=== PATIENT | female | born 1940 | race American Indian/Alaskan Native ===

== ENCOUNTER 2022-07-09 10:41 | Inpatient (IN) | payer MEDICARE ==
[2022-07-09] MEDS ORDERED: traZODone 50 MG TAB PO SCH (22:00)
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
[2022-07-10] MEDS ORDERED: hydrOXYzine PAMOATE 25 MG CAP PO PRN (10:59)
[2022-07-10 16:07] LABS: Hematocrit 33.8 % (30.3-42.9); Hemoglobin 10.8 gm/dl (10.1-14.3); Mean Corpuscular HGB Conc 32 % (30-34); Mean Corpuscular Volume 95 fl (79-97); Platelet Count 247 K/mm3 (140-440); Red Blood Count 3.56 M/mm3 (3.65-5.03); Red Cell Distribution Width 13.4 % (13.2-15.2)
[2022-07-10 16:21] LABS: Albumin 3.9 g/dL (3.9-5); BUN/Creatinine Ratio 18; Blood Urea Nitrogen 16 mg/dL (7-17); Calcium 9.4 mg/dL (8.4-10.2); Chol/HDL Ratio 2.31 %; Hemolysis Index 4
[2022-07-10 16:27] LABS: Alanine Aminotransferase < 5 units/L (7-56)
[2022-07-10 17:20] LABS: Anisocytosis 1+; Basophils % (Manual) 0 % (0.0-1.8); Burr Cells 1+; Platelet Estimate Consistent w Auto; Poikilocytosis 1+; Total Cells Counted 100
--- NOTE | 2022-07-10 17:57 | Consultation ---
History of Present Illness - Reason for Consult Consult date: 07/10/22 Medical management - History of Present Illness Patient is a 81-year-old female past medical history of hypertension, nonin sulin-dependent type 2 diabetes mellitus, hyperlipidemia, and anxiety who presented for further stabilization after experiencing paranoia and delusions. The patient denied any hallucinations, suicidal ideation, or increased erratic behavior. On evaluation, the patient was found to be alert and oriented and hemodynamically stable. The hospitalist service was consulted for medical management of nonpsychiatric diagnoses. Past History Past Medical History: diabetes ([id number]), hypertension, hyperlipidemia, other (Anxiety) Past Surgical History: No surgical history Social history: lives with family, full code Family history: no significant family history Medications and Allergies Allergies Allergy/AdvReac Type Severity Reaction Status Date / Time No Known Allergies Allergy Verified 07/09/22 20:32 Home Medications Medication Instructions Recorded Confirmed Last Taken Type Furosemide [Lasix] 40 mg PO DAILY 07/10/22 07/10/22 Unknown History Potassium Chloride [Klor-Con M20] 20 meq PO DAILY 07/10/22 07/10/22 Unknown History Simvastatin 40 mg PO HS 07/10/22 07/10/22 Unknown History Sulfamethoxazole/Trimethoprim 1 each PO BID MDD 14 tabs X 7 Days 07/10/22 07/10/22 Unknown History [Bactrim DS TAB] carvediloL [Coreg] 3.125 mg PO BID 07/10/22 07/10/22 Unknown History lisinopriL [Lisinopril] 20 mg PO DAILY 07/10/22 07/10/22 Unknown History metFORMIN [Glucophage] 500 mg PO BID 07/10/22 07/10/22 Unknown History risperiDONE [RisperDAL] 0.5 mg PO HS 07/10/22 07/10/22 Unknown History risperiDONE [RisperDAL] 0.5 mg PO QHS 07/10/22 07/10/22 Unknown History Active Meds: Active Medications Hydroxyzine Pamoate (Hydroxyzine Pamoate 25 Mg Cap) 25 mg PO Q6H PRN PRN Reason: Anxiety Risperidone (Risperidone 0.25 Mg Tab) 0.5 mg PO HS [facility] Trazodone HCl (Trazodone 50 Mg Tab) 50 mg PO QHS PRN PRN Reason: Insomnia Review of Systems All systems: negative Exam - Constitutional Vitals: Temp Pulse Resp BP Pulse Ox 97.7 F 145 H 18 108/75 99 07/10/22 09:31 07/10/22 09:31 07/10/22 09:31 07/10/22 09:31 07/10/22 09:31 General appearance: Present: no acute distress, well-nourished - EENT Eyes: Present: PERRL, EOM intact ENT: hearing intact, clear oral mucosa, dentition normal - Neck Neck: Present: supple, normal ROM - Respiratory Respiratory effort: normal Respiratory: bilateral: CTA - Cardiovascular Rhythm: regular Heart Sounds: Present: S1 & S2 - Extremities Extremities: no ischemia, pulses intact, pulses symmetrical, No edema, normal temperature, normal color Peripheral Pulses: within normal limits - Abdominal General gastrointestinal: Present: soft, non-tender, non-distended, normal bowel sounds Female genitourinary: Present: deferred - Rectal Rectal Exam: deferred - Integumentary Integumentary: Present: clear, warm, dry - Musculoskeletal Musculoskeletal: strength equal bilaterally - Psychiatric Psychiatric: other (Increased anxiety) - Neurologic Neurologic: CNII-XII intact, moves all extremities - Allied Health Allied health notes reviewed: nursing Results - Labs CBC & Chem 7: 07/10/22 07:28 07/10/22 07:28 Labs: Abnormal lab results 07/10/22 07/10/22 07/10/22 Range/Units 07:28 07:28 07:28 RBC 3.56 L (3.65-5.03) M/mm3 Lymphocytes % (Manual) 9.0 L (13.4-35.0) % Monocytes % (Manual) 20.0 H (0.0-7.3) % Eosinophils % (Manual) 7.0 H (0.0-4.3) % Lymphocytes # (Manual) 0.5 L (1.2-5.4) K/mm3 Monocytes # (Manual) 1.0 H (0.0-0.8) K/mm3 POC Glucose (70-105) mg/dL ALT < 5 L (7-56) units/L HDL Cholesterol 72 H (40-59) mg/dL 07/10/22 Range/Units 08:03 RBC (3.65-5.03) M/mm3 Lymphocytes % (Manual) (13.4-35.0) % Monocytes % (Manual) (0.0-7.3) % Eosinophils % (Manual) (0.0-4.3) % Lymphocytes # (Manual) (1.2-5.4) K/mm3 Monocytes # (Manual) (0.0-0.8) K/mm3 POC Glucose 133 H (70-105) mg/dL ALT (7-56) units/L HDL Cholesterol (40-59) mg/dL Assessment and Plan Patient is a 81-year-old female past medical history of hypertension, noninsulin-dependent type 2 diabetes mellitus, hyperlipidemia, and anxiety who p resented for further stabilization after experiencing paranoia and delusions. The patient denied any hallucinations, suicidal ideation, or increased erratic behavior. On evaluation, the patient was found to be alert and oriented and hemodynamically stable. The hospitalist service was consulted for medical management of nonpsychiatric diagnoses. #Anxiety #Delusion disorder Management per primary team #Acute cystitis without hematuria Continue Bactrim 1 tab twice daily x5 days #Hyperlipidemia #Hypertension - home medications: Lasix 40 mg daily, simvastatin 40 mg daily, Coreg 3.125 mg twice daily, lisinopril 20 mg daily - current medications: Atorvastatin 40 mg daily, Coreg 3.125 mg twice daily, lisinopril 20 mg daily - SBP goal <160 and DBP goal <90 while inpatient - continue to monitor #Non-insulin dependent type II diabetes mellitus - hemoglobin A1c: 5.4 - home regimen: Metformin 500 mg twice daily - current regimen: Discontinuing metformin 500 mg twice daily as the patient's A1c is within normal range - blood glucose goal 140-180 while inpatient - continue to monitor #Advanced care planning -Disease education conducted, care plan discussed, diagnoses discussed, prognosis discussed, and patient acknowledges understanding with care plan -Time: +30 min Thank you for this interesting consult. Please feel free to reach out should any questions arise. We will continue to monitor.
[2022-07-10] MEDS: SULFAMETHOXAZOLE/TRIMETHOPRIM 800/160MG DS TAB PO SCH (21:50)
[2022-07-10] MEDS: risperiDONE 0.25 MG TAB PO SCH (21:50)
[2022-07-10] MEDS ORDERED: NON-FORMULARY EACH (Risperidone [Risperdal] 0.5 MG Tablet) PO SCH (22:00)
[2022-07-10] MEDS ORDERED: traZODone 50 MG TAB PO PRN (22:00)
[2022-07-10] MEDS ORDERED: metFORMIN 500 MG TAB PO SCH (22:00)
--- NOTE | 2022-07-11 07:56 | Progress Note ---
Assessment and Plan Assessment and plan: Patient is a 81-year-old female past medical history of hypertension, noninsulin-dependent type 2 diabetes mellitus, hyperlipidemia, and anxiety who presented for further stabilization after experiencing paranoia and delusions. The patient denied any hallucinations, suicidal ideation, or increased erratic behavior. On evaluation, the patient was found to be alert and oriented and hemodynamically stable. The hospitalist service was consulted for medical management of nonpsychiatric diagnoses. Past History Past Medical History: diabetes ([id number]), hypertension, hyperlipidemia, other (Anxiety) Past Surgical History: No surgical history Social history: lives with family, full code Family history: no significant family history Patient is a 81-year-old female past medical history of hypertension, noninsulin-dependent type 2 diabetes mellitus, hyperlipidemia, and anxiety who presented for further stabilization after experiencing paranoia and delusions. The patient denied any hallucinations, suicidal ideation, or increased erratic behavior. On evaluation, the patient was found to be alert and oriented and hemodynamically stable. The hospitalist service was consulted for medical management of nonpsychiatric diagnoses. #Anxiety: Continue supportive care per PSYCH TEAM #Delusion disorder Management per primary team #Acute cystitis without hematuria Continue Bactrim 1 tab twice daily x5 days #Hyperlipidemia #Hypertension - home medications: Lasix 40 mg daily, simvastatin 40 mg daily, Coreg 3.125 mg twice daily, lisinopril 20 mg daily - current medications: Atorvastatin 40 mg daily, Coreg 3.125 mg twice daily, lisinopril 20 mg daily - SBP goal <160 and DBP goal <90 while inpatient - continue to monitor #Non-insulin dependent type II diabetes mellitus - hemoglobin A1c: 5.4 - home regimen: Metformin 500 mg twice daily - current regimen: Discontinuing metformin 500 mg twice daily as the patient's A1c is within normal range - blood glucose goal 140-180 while inpatient - continue to monitor #Advanced care planning -Disease education conducted, care plan discussed, diagnoses discussed, pr ognosis discussed, and patient acknowledges understanding with care plan -Time: +30 min Thank you for this interesting consult. Please feel free to reach out should any questions arise. We will continue to monitor. History Interval history: Patient seen and examined no new complaints this morning. Hospitalist Physical - Physical exam Narrative exam: Other diarrhea have improved back from General appearance: Present: no acute distress, well-nourished - EENT Eyes: Present: PERRL, EOM intact ENT: hearing intact, clear oral mucosa, dentition normal - Neck Neck: Present: supple, normal ROM - Respiratory Respiratory effort: normal Respiratory: bilateral: CTA - Cardiovascular Rhythm: regular Heart Sounds: Present: S1 & S2 - Extremities Extremities: no ischemia, pulses intact, pulses symmetrical, No edema, normal temperature, normal color Peripheral Pulses: within normal limits - Abdominal General gastrointestinal: Present: soft, non-tender, non-distended, normal bowel sounds Female genitourinary: Present: deferred - Rectal Rectal Exam: deferred - Integumentary Integumentary: Present: clear, warm, dry - Musculoskeletal Musculoskeletal: strength equal bilaterally - Psychiatric Psychiatric: Normal mood - Neurologic Neurologic: CNII-XII intact, moves all extremities - Allied Health Allied health notes reviewed: nursing - Constitutional Vitals: Temp Pulse Resp BP Pulse Ox 98.9 F 90 18 108/75 99 07/10/22 22:00 07/10/22 22:00 07/10/22 22:00 07/10/22 22:00 07/10/22 22:00 General appearance: Present: no acute distress, well-nourished Results - Labs CBC & Chem 7: 07/10/22 07:28 07/10/22 07:28 Labs: Laboratory Last Values WBC 5.2 K/mm3 (4.5-11.0) 07/10/22 07:28 RBC 3.56 M/mm3 (3.65-5.03) L 07/10/22 07:28 Hgb 10.8 gm/dl (10.1-14.3) 07/10/22 07:28 Hct 33.8 % (30.3-42.9) 07/10/22 07:28 MCV 95 fl (79-97) 07/10/22 07:28 MCH 30 pg (28-32) 07/10/22 07:28 MCHC 32 % (30-34) 07/10/22 07:28 RDW 13.4 % (13.2-15.2) 07/10/22 07:28 Plt Count 247 K/mm3 (140-440) 07/10/22 07:28 Bartholomew % (Auto) Power Reactor Supervisor 07/10/22 07:28 Add Manual Diff Complete 07/10/22 07:28 Total Counted 100 07/10/22 07:28 Seg Neuts % (Manual) 64.0 % (40.0-70.0) 07/10/22 07:28 Band Neutrophils % 0 % 07/10/22 07:28 Lymphocytes % (Manual) 9.0 % (13.4-35.0) L 07/10/22 07:28 Reactive Lymphs % (Man) 0 % 07/10/22 07:28 Monocytes % (Manual) 20.0 % (0.0-7.3) H 07/10/22 07:28 Eosinophils % (Manual) 7.0 % (0.0-4.3) H 07/10/22 07:28 Basophils % (Manual) 0 % (0.0-1.8) 07/10/22 07:28 Metamyelocytes % 0 % 07/10/22 07:28 Myelocytes % 0 % 07/10/22 07:28 Promyelocytes % 0 % 07/10/22 07:28 Blast Cells % 0 % 07/10/22 07:28 Nucleated RBC % Not Reportable 07/10/22 07:28 Seg Neutrophils # Man 3.3 K/mm3 (1.8-7.7) 07/10/22 07:28 Band Neutrophils # 0.0 K/mm3 07/10/22 07:28 Lymphocytes # (Manual) 0.5 K/mm3 (1.2-5.4) L 07/10/22 07:28 Abs React Lymphs (Man) 0.0 K/mm3 07/10/22 07:28 Monocytes # (Manual) 1.0 K/mm3 (0.0-0.8) H 07/10/22 07:28 Eosinophils # (Manual) 0.4 K/mm3 (0.0-0.4) 07/10/22 07:28 Basophils # (Manual) 0.0 K/mm3 (0.0-0.1) 07/10/22 07:28 Metamyelocytes # 0.0 K/mm3 07/10/22 07:28 Myelocytes # 0.0 K/mm3 07/10/22 07:28 Promyelocytes # 0.0 K/mm3 07/10/22 07:28 Blast Cells # 0.0 K/mm3 07/10/22 07:28 WBC Morphology Not Reportable 07/10/22 07:28 Hypersegmented Neuts Not Reportable 07/10/22 07:28 Hyposegmented Neuts Not Reportable 07/10/22 07:28 Hypogranular Neuts Not Reportable 07/10/22 07:28 Smudge Cells Not Reportable 07/10/22 07:28 Toxic Granulation Not Reportable 07/10/22 07:28 Toxic Vacuolation Not Reportable 07/10/22 07:28 Dohle Bodies Not Reportable 07/10/22 07:28 Pelger-Huet Anomaly Not Reportable 07/10/22 07:28 Tamika Rods Not Reportable 07/10/22 07:28 Platelet Estimate Consistent w auto 07/10/22 07:28 Clumped Platelets Not Reportable 07/10/22 07:28 Plt Clumps, EDTA Not Reportable 07/10/22 07:28 Large Platelets Not Reportable 07/10/22 07:28 Giant Platelets Not Reportable 07/10/22 07:28 Platelet Satelliting Not Reportable 07/10/22 07:28 Plt Morphology Comment Not Reportable 07/10/22 07:28 RBC Morphology Not Reportable 07/10/22 07:28 Dimorphic RBCs Not Reportable 07/10/22 07:28 Polychromasia Not Reportable 07/10/22 07:28 Hypochromasia Not Reportable 07/10/22 07:28 Poikilocytosis 1+ 07/10/22 07:28 Anisocytosis 1+ 07/10/22 07:28 Microcytosis Not Reportable 07/10/22 07:28 Macrocytosis Not Reportable 07/10/22 07:28 Spherocytes Not Reportable 07/10/22 07:28 Pappenheimer Bodies Not Reportable 07/10/22 07:28 Sickle Cells Not Reportable 07/10/22 07:28 Target Cells Not Reportable 07/10/22 07:28 Tear Drop Cells Not Reportable 07/10/22 07:28 Ovalocytes Not Reportable 07/10/22 07:28 Helmet Cells Not Reportable 07/10/22 07:28 Gonzalez-Freistatt Bodies Not Reportable 07/10/22 07:28 Bruno Rings Not Reportable 07/10/22 07:28 Somers Cells 1+ 07/10/22 07:28 Bite Cells Not Reportable 07/10/22 07:28 Crenated Cell Not Reportable 07/10/22 07:28 Elliptocytes Not Reportable 07/10/22 07:28 Acanthocytes (Spur) Not Reportable 07/10/22 07:28 Rouleaux Not Reportable 07/10/22 07:28 Hemoglobin C Crystals Not Reportable 07/10/22 07:28 Schistocytes Not Reportable 07/10/22 07:28 Malaria parasites Not Reportable 07/10/22 07:28 Justin Bodies Not Reportable 07/10/22 07:28 Hem Pathologist Commnt No 07/10/22 07:28 Sodium 144 mmol/L (137-145) 07/10/22 07:28 Potassium 4.0 mmol/L (3.6-5.0) 07/10/22 07:28 Chloride 102.4 mmol/L (98-107) 07/10/22 07:28 Carbon Dioxide 29 mmol/L (22-30) 07/10/22 07:28 Anion Gap 17 mmol/L 07/10/22 07:28 BUN 16 mg/dL (7-17) 07/10/22 07:28 Creatinine 0.9 mg/dL (0.6-1.2) 07/10/22 07:28 Estimated GFR > 60 ml/min 07/10/22 07:28 BUN/Creatinine Ratio 18 % 07/10/22 07:28 Glucose 100 mg/dL (65-100) 07/10/22 07:28 POC Glucose 254 mg/dL (70-105) H 07/10/22 20:33 Hemoglobin A1c 5.4 % (4-6) 07/10/22 07:28 Calcium 9.4 mg/dL (8.4-10.2) 07/10/22 07:28 Total Bilirubin 0.80 mg/dL (0.1-1.2) 07/10/22 07:28 AST 12 units/L (5-40) 07/10/22 07:28 ALT < 5 units/L (7-56) L 07/10/22 07:28 Alkaline Phosphatase 76 units/L (35-129) 07/10/22 07:28 Total Protein 6.6 g/dL (6.3-8.2) 07/10/22 07:28 Albumin 3.9 g/dL (3.9-5) 07/10/22 07:28 Albumin/Globulin Ratio 1.4 % 07/10/22 07:28 Triglycerides 59 mg/dL (2-149) 07/10/22 07:28 Cholesterol 167 mg/dL (50-199) 07/10/22 07:28 LDL Cholesterol Direct 86 mg/dL (50-130) 07/10/22 07:28 HDL Cholesterol 72 mg/dL (40-59) H 07/10/22 07:28 Cholesterol/HDL Ratio 2.31 % 07/10/22 07:28 TSH 0.573 mlU/mL (0.270-4.200) 07/10/22 07:28 Varghese/IV: Voiding Method Toilet Active Medications - Current Medications Current Medications: Generic Name Dose Route Start Last Admin Trade Name Freq PRN Reason Stop Dose Admin Carvedilol 3.125 mg 07/11/22 10:00 Carvedilol 3.125 Mg Tab PO BID ALVINO Hydroxyzine Pamoate 25 mg 07/10/22 10:59 Hydroxyzine Pamoate 25 Mg Cap PO Q6H PRN Anxiety Lisinopril 20 mg 07/11/22 10:00 Lisinopril 20 Mg Tab PO DAILY ALVINO Metformin HCl 500 mg 07/11/22 08:00 Metformin 500 Mg Tab PO BIDDIAB ALVINO Risperidone 0.5 mg 07/10/22 22:00 07/10/22 21:50 Risperidone 0.25 Mg Tab PO 0.5 mg HS ALVINO Administration Trazodone HCl 50 mg 07/10/22 22:00 Trazodone 50 Mg Tab PO QHS PRN Insomnia Trimethoprim/Sulfamethoxazole 1 each 07/10/22 22:00 07/10/22 21:50 Sulfamethoxazole/Trimethoprim 800/160mg Ds Tab PO 07/15/22 10:01 1 each BID ALVINO Administration Protocol
--- NOTE | 2022-07-11 09:01 | Progress Note ---
Subjective Date of service: 07/11/22 Subjective Comment: 07/11:The patient was seen in the activity room. She reports that she is doing " fair." She reports sleep and appetite is good. The patient denies any current suicidal/homicidal ideation and [id number] hallucinations. REVIEW OF SYSTEMS Constitutional: Negative for weight loss ENT: Negative for stridor Respiratory: Negative for cough or hemoptysis All other systems reviewed and are negative MENTAL STATUS EXAMINATION General Appearance and Behavior: Age appropriate, wearing appropriate clothes, cooperative, polite with questioning, good eye contact Cooperation: cooperative Psychomotor Behavior: Psychomotor normal Mood: Calm Affect and affective range: congruent with stated affect Thought Process: Goal directed Thought Content: Reality oriented Speech: Normal volume, Regular rate and rhythm Suicidal Ideation: Denies Homicidal Ideation: Denies Hallucination: Denies Delusions: Denies Impulse Control: Limited Insight and Judgment: Limited Memory: Intact Attention:attentive Orientation: Alert and oriented Diagnoses: Unspecified mood disorder Treatment Plan Patient admitted for inpatient psychiatric evaluation, medication adjustment and close monitoring The patient's behavior, mood, sleep and appetite will be closely monitored. Patient enrolled in individual and group therapeutic sessions and encouraged to attend. Patient provided with a safe and structured environment. Patient's physical health needs will be addressed by the Hospitalist. Hospitalist Consulted Labs including CBC, CMP, Lipid profile and Hemoglobin A1C levels ordered for baseline reference Social Assessment will be completed and the Field Support Engineer will work with patient and family to ensure a suitable and safe disposition Medication adjustment will be made as clinically indicated Continue home meds Usual Wellness Latter-Day/Preservation: - Start Trazodone 50 mg po QHS & 50 mg po QHS PRN between 10 PM & 2 AM for insomnia - Start Melatonin 5 mg po QHS to promote circadian rhythm The patient agreed on the treatment plan, understood the risk, benefit, alternative treatment, potential consequence of no treatment, and gave informed consent. Estimated days: 7 Post hospital care: primary care provider, psychiatric provider Case staffed with Dr. Negro Legal Status: Voluntary Reaction to Hospitalization: Accepting Medications and Allergies Medications and Allergies Allergies Allergy/AdvReac Type Severity Reaction Status Date / Time No Known Allergies Allergy Verified 07/09/22 20:32 Home Medications Medication Instructions Recorded Confirmed Last Taken Type Furosemide [Lasix] 40 mg PO DAILY 07/10/22 07/10/22 Unknown History Potassium Chloride [Klor-Con M20] 20 meq PO DAILY 07/10/22 07/10/22 Unknown History Simvastatin 40 mg PO HS 07/10/22 07/10/22 Unknown History Sulfamethoxazole/Trimethoprim 1 each PO BID MDD 14 tabs X 7 Days 07/10/22 07/10/22 Unknown History [Bactrim DS TAB] carvediloL [Coreg] 3.125 mg PO BID 07/10/22 07/10/22 Unknown History lisinopriL [Lisinopril] 20 mg PO DAILY 07/10/22 07/10/22 Unknown History metFORMIN [Glucophage] 500 mg PO BID 07/10/22 07/10/22 Unknown History risperiDONE [RisperDAL] 0.5 mg PO HS 07/10/22 07/10/22 Unknown History risperiDONE [RisperDAL] 0.5 mg PO QHS 07/10/22 07/10/22 Unknown History Active Meds: Active Medications Carvedilol (Carvedilol 3.125 Mg Tab) 3.125 mg PO BID [facility] Hydroxyzine Pamoate (Hydroxyzine Pamoate 25 Mg Cap) 25 mg PO Q6H PRN PRN Reason: Anxiety Lisinopril (Lisinopril 20 Mg Tab) 20 mg PO DAILY [facility] Metformin HCl (Metformin 500 Mg Tab) 500 mg PO BIDDIAB [facility] Risperidone (Risperidone 0.25 Mg Tab) 0.[address] [facility] Last Admin: 07/10/22 21:50 Dose: 0.5 mg Trazodone HCl (Trazodone 50 Mg Tab) 50 mg PO QHS PRN PRN Reason: Insomnia Trimethoprim/Sulfamethoxazole (Sulfamethoxazole/Trimethoprim 800/160mg Ds Tab) 1 each PO BID [facility]; Protocol Stop: 07/15/22 10:01 Last Admin: 07/10/22 21:50 Dose: 1 each Results - Results Labs/Vitals: Laboratory Last Values WBC 5.2 K/mm3 (4.5-11.0) 07/10/22 07:28 RBC 3.56 M/mm3 (3.65-5.03) L 07/10/22 07:28 Hgb 10.8 gm/dl (10.1-14.3) 07/10/22 07:28 Hct 33.8 % (30.3-42.9) 07/10/22 07:28 MCV 95 fl (79-97) 07/10/22 07:28 MCH 30 pg (28-32) 07/10/22 07:28 MCHC 32 % (30-34) 07/10/22 07:28 RDW 13.4 % (13.2-15.2) 07/10/22 07:28 Plt Count 247 K/mm3 (140-440) 07/10/22 07:28 [place] % (Auto) Candy Rolling Machine Operator 07/10/22 07:28 Add Manual Diff Complete 07/10/22 07:28 Total Counted 100 07/10/22 07:28 Seg Neuts % (Manual) 64.0 % (40.0-70.0) 07/10/22 07:28 Band Neutrophils % 0 % 07/10/22 07:28 Lymphocytes % (Manual) 9.0 % (13.4-35.0) L 07/10/22 07:28 Reactive Lymphs % (Man) 0 % 07/10/22 07:28 Monocytes % (Manual) 20.0 % (0.0-7.3) H 07/10/22 07:28 Eosinophils % (Manual) 7.0 % (0.0-4.3) H 07/10/22 07:28 Basophils % (Manual) 0 % (0.0-1.8) 07/10/22 07:28 Metamyelocytes % 0 % 07/10/22 07:28 Myelocytes % 0 % 07/10/22 07:28 Promyelocytes % 0 % 07/10/22 07:28 Blast Cells % 0 % 07/10/22 07:28 Nucleated RBC % Not Reportable 07/10/22 07:28 Seg Neutrophils # Man 3.3 K/mm3 (1.8-7.7) 07/10/22 07:28 Band Neutrophils # 0.0 K/mm3 07/10/22 07:28 Lymphocytes # (Manual) 0.5 K/mm3 (1.2-5.4) L 07/10/22 07:28 Abs React Lymphs (Man) 0.0 K/mm3 07/10/22 07:28 Monocytes # (Manual) 1.0 K/mm3 (0.0-0.8) H 07/10/22 07:28 Eosinophils # (Manual) 0.4 K/mm3 (0.0-0.4) 07/10/22 07:28 Basophils # (Manual) 0.0 K/mm3 (0.0-0.1) 07/10/22 07:28 Metamyelocytes # 0.0 K/mm3 07/10/22 07:28 Myelocytes # 0.0 K/mm3 07/10/22 07:28 Promyelocytes # 0.0 K/mm3 07/10/22 07:28 Blast Cells # 0.0 K/mm3 07/10/22 07:28 WBC Morphology Not Reportable 07/10/22 07:28 Hypersegmented Neuts Not Reportable 07/10/22 07:28 Hyposegmented Neuts Not Reportable 07/10/22 07:28 Hypogranular Neuts Not Reportable 07/10/22 07:28 Smudge Cells Not Reportable 07/10/22 07:28 Toxic Granulation Not Reportable 07/10/22 07:28 Toxic Vacuolation Not Reportable 07/10/22 07:28 Dohle Bodies Not Reportable 07/10/22 07:28 Pelger-Huet Anomaly Not Reportable 07/10/22 07:28 Tamika Rods Not Reportable 07/10/22 07:28 Platelet Estimate Consistent w auto 07/10/22 07:28 Clumped Platelets Not Reportable 07/10/22 07:28 Plt Clumps, EDTA Not Reportable 07/10/22 07:28 Large Platelets Not Reportable 07/10/22 07:28 Giant Platelets Not Reportable 07/10/22 07:28 Platelet Satelliting Not Reportable 07/10/22 07:28 Plt Morphology Comment Not Reportable 07/10/22 07:28 RBC Morphology Not Reportable 07/10/22 07:28 Dimorphic RBCs Not Reportable 07/10/22 07:28 Polychromasia Not Reportable 07/10/22 07:28 Hypochromasia Not Reportable 07/10/22 07:28 Poikilocytosis 1+ 07/10/22 07:28 Anisocytosis 1+ 07/10/22 07:28 Microcytosis Not Reportable 07/10/22 07:28 Macrocytosis Not Reportable 07/10/22 07:28 Spherocytes Not Reportable 07/10/22 07:28 Pappenheimer Bodies Not Reportable 07/10/22 07:28 Sickle Cells Not Reportable 07/10/22 07:28 Target Cells Not Reportable 07/10/22 07:28 Tear Drop Cells Not Reportable 07/10/22 07:28 Ovalocytes Not Reportable 07/10/22 07:28 Helmet Cells Not Reportable 07/10/22 07:28 Gonzalez-[place] Bodies Not Reportable 07/10/22 07:28 [place] Rings Not Reportable 07/10/22 07:28 Beto Cells 1+ 07/10/22 07:28 Bite Cells Not Reportable 07/10/22 07:28 Crenated Cell Not Reportable 07/10/22 07:28 Elliptocytes Not Reportable 07/10/22 07:28 Acanthocytes (Spur) Not Reportable 07/10/22 07:28 Rouleaux Not Reportable 07/10/22 07:28 Hemoglobin C Crystals Not Reportable 07/10/22 07:28 Schistocytes Not Reportable 07/10/22 07:28 Malaria parasites Not Reportable 07/10/22 07:28 Justin Bodies Not Reportable 07/10/22 07:28 Hem Pathologist Commnt No 07/10/22 07:28 Sodium 144 mmol/L (137-145) 07/10/22 07:28 Potassium 4.0 mmol/L (3.6-5.0) 07/10/22 07:28 Chloride 102.4 mmol/L (98-107) 07/10/22 07:28 Carbon Dioxide 29 mmol/L (22-30) 07/10/22 07:28 Anion Gap 17 mmol/L 07/10/22 07:28 BUN 16 mg/dL (7-17) 07/10/22 07:28 Creatinine 0.9 mg/dL (0.6-1.2) 07/10/22 07:28 Estimated GFR > 60 ml/min 07/10/22 07:28 BUN/Creatinine Ratio 18 % 07/10/22 07:28 Glucose 100 mg/dL (65-100) 07/10/22 07:28 POC Glucose 254 mg/dL (70-105) H 07/10/22 20:33 Hemoglobin A1c 5.4 % (4-6) 07/10/22 07:28 Calcium 9.4 mg/dL (8.4-10.2) 07/10/22 07:28 Total Bilirubin 0.80 mg/dL (0.1-1.2) 07/10/22 07:28 AST 12 units/L (5-40) 07/10/22 07:28 ALT < 5 units/L (7-56) L 07/10/22 07:28 Alkaline Phosphatase 76 units/L (35-129) 07/10/22 07:28 Total Protein 6.6 g/dL (6.3-8.2) 07/10/22 07:28 Albumin 3.9 g/dL (3.9-5) 07/10/22 07:28 Albumin/Globulin Ratio 1.4 % 07/10/22 07:28 Triglycerides 59 mg/dL (2-149) 07/10/22 07:28 Cholesterol 167 mg/dL (50-199) 07/10/22 07:28 LDL Cholesterol Direct 86 mg/dL (50-130) 07/10/22 07:28 HDL Cholesterol 72 mg/dL (40-59) H 07/10/22 07:28 Cholesterol/HDL Ratio 2.31 % 07/10/22 07:28 TSH 0.573 mlU/mL (0.270-4.200) 07/10/22 07:28 Last Vital Signs Temp 98.9 F 07/10/22 22:00 Pulse 90 07/10/22 22:00 Resp 18 07/10/22 22:00 BP 108/75 07/10/22 22:00 Pulse Ox 99 07/10/22 22:00
[2022-07-11] MEDS: carvediloL 3.125 MG TAB PO SCH ×2 (09:50→21:18)
[2022-07-11] MEDS: metFORMIN 500 MG TAB PO SCH ×2 (09:50→16:25)
[2022-07-11] MEDS: LISINOPRIL 20 MG TAB PO SCH (09:51)
[2022-07-11] MEDS: SULFAMETHOXAZOLE/TRIMETHOPRIM 800/160MG DS TAB PO SCH ×2 (09:52→21:18)
[2022-07-11] MEDS: risperiDONE 0.25 MG TAB PO SCH (21:18)
[2022-07-12] MEDS: metFORMIN 500 MG TAB PO SCH ×2 (08:55→16:50)
--- NOTE | 2022-07-12 08:58 | Progress Note ---
Subjective Date of service: 07/12/22 Subjective Comment: 07/12: The patient was seen in her room. She reports doing well. She reports sleep and appetite as good. She reports having good conversation with daughter and son. She denies depression and paranoia. The patient denies any current suicidal/homicidal ideation and [id number] hallucinations. 07/11:The patient was seen in the activity room. She reports that she is doing " fair." She reports sleep and appetite is good. The patient denies any current suicidal/homicidal ideation and [id number] hallucinations. REVIEW OF SYSTEMS Constitutional: Negative for weight loss ENT: Negative for stridor Respiratory: Negative for cough or hemoptysis All other systems reviewed and are negative MENTAL STATUS EXAMINATION General Appearance and Behavior: Age appropriate, wearing appropriate clothes, cooperative, polite with questioning, good eye contact Cooperation: cooperative Psychomotor Behavior: Psychomotor normal Mood: Calm Affect and affective range: congruent with stated affect Thought Process: Goal directed Thought Content: Reality oriented Speech: Normal volume, Regular rate and rhythm Suicidal Ideation: Denies Homicidal Ideation: Denies Hallucination: Denies Delusions: Denies Impulse Control: Limited Insight and Judgment: Limited Memory: Intact Attention:attentive Orientation: Alert and oriented Diagnoses: Unspecified mood disorder Treatment Plan Patient admitted for inpatient psychiatric evaluation, medication adjustment and close monitoring The patient's behavior, mood, sleep and appetite will be closely monitored. Patient enrolled in individual and group therapeutic sessions and encouraged to attend. Patient provided with a safe and structured environment. Patient's physical health needs will be addressed by the Hospitalist. Hospitalist Consulted Labs including CBC, CMP, Lipid profile and Hemoglobin A1C levels ordered for baseline reference Social Assessment will be completed and the Customer Servicer will work with patient and family to ensure a suitable and safe disposition Medication adjustment will be made as clinically indicated Continue home meds Usual Wellness Yarsanism/Preservation: - Start Trazodone 50 mg po QHS & 50 mg po QHS PRN between 10 PM & 2 AM for insomnia - Start Melatonin 5 mg po QHS to promote circadian rhythm The patient agreed on the treatment plan, understood the risk, benefit, alternative treatment, potential consequence of no treatment, and gave informed consent. Estimated days: 7 Post hospital care: primary care provider, psychiatric provider Case staffed with Dr. Negro Legal Status: Voluntary Reaction to Hospitalization: Accepting Medications and Allergies Medications and Allergies Allergies Allergy/AdvReac Type Severity Reaction Status Date / Time No Known Allergies Allergy Verified 07/09/22 20:32 Home Medications Medication Instructions Recorded Confirmed Last Taken Type Furosemide [Lasix] 40 mg PO DAILY 07/10/22 07/10/22 Unknown History Potassium Chloride [Klor-Con M20] 20 meq PO DAILY 07/10/22 07/10/22 Unknown History Simvastatin 40 mg PO HS 07/10/22 07/10/22 Unknown History Sulfamethoxazole/Trimethoprim 1 each PO BID [facility] 14 tabs X 7 Days 07/10/22 07/10/22 Unknown History [Bactrim DS TAB] carvediloL [Coreg] 3.125 mg PO BID 07/10/22 07/10/22 Unknown History lisinopriL [Lisinopril] 20 mg PO DAILY 07/10/22 07/10/22 Unknown History metFORMIN [Glucophage] 500 mg PO BID 07/10/22 07/10/22 Unknown History risperiDONE [RisperDAL] 0.5 mg PO HS 07/10/22 07/10/22 Unknown History risperiDONE [RisperDAL] 0.5 mg PO QHS 07/10/22 07/10/22 Unknown History Active Meds: Active Medications Carvedilol (Carvedilol 3.125 Mg Tab) 3.125 mg PO BID [facility] Last Admin: 07/11/22 21:18 Dose: 3.125 mg Furosemide (Furosemide 40 Mg Tab) 40 mg PO QDAY [facility] Hydroxyzine Pamoate (Hydroxyzine Pamoate 25 Mg Cap) 25 mg PO Q6H PRN PRN Reason: Anxiety Lisinopril (Lisinopril 20 Mg Tab) 20 mg PO DAILY [facility] Last Admin: 07/11/22 09:51 Dose: 20 mg Metformin HCl (Metformin 500 Mg Tab) 500 mg PO BIDDIAB [facility] Last Admin: 07/11/22 16:25 Dose: 500 mg Risperidone (Risperidone 0.25 Mg Tab) 0.5 mg PO [facility] Last Admin: 07/11/22 21:18 Dose: 0.5 mg Trazodone HCl (Trazodone 50 Mg Tab) 50 mg PO QHS PRN PRN Reason: Insomnia Trimethoprim/Sulfamethoxazole (Sulfamethoxazole/Trimethoprim 800/160mg Ds Tab) 1 each PO BID [facility]; Protocol Stop: 07/15/22 10:01 Last Admin: 07/11/22 21:18 Dose: 1 each Results - Results Labs/Vitals: Laboratory Last Values WBC 5.2 K/mm3 (4.5-11.0) 07/10/22 07:28 RBC 3.56 M/mm3 (3.65-5.03) L 07/10/22 07:28 Hgb 10.8 gm/dl (10.1-14.3) 07/10/22 07:28 Hct 33.8 % (30.3-42.9) 07/10/22 07:28 MCV 95 fl (79-97) 07/10/22 07:28 MCH 30 pg (28-32) 07/10/22 07:28 MCHC 32 % (30-34) 07/10/22 07:28 RDW 13.4 % (13.2-15.2) 07/10/22 07:28 Plt Count 247 K/mm3 (140-440) 07/10/22 07:28 [place] % (Auto) Roving Inspector 07/10/22 07:28 Add Manual Diff Complete 07/10/22 07:28 Total Counted 100 07/10/22 07:28 Seg Neuts % (Manual) 64.0 % (40.0-70.0) 07/10/22 07:28 Band Neutrophils % 0 % 07/10/22 07:28 Lymphocytes % (Manual) 9.0 % (13.4-35.0) L 07/10/22 07:28 Reactive Lymphs % (Man) 0 % 07/10/22 07:28 Monocytes % (Manual) 20.0 % (0.0-7.3) H 07/10/22 07:28 Eosinophils % (Manual) 7.0 % (0.0-4.3) H 07/10/22 07:28 Basophils % (Manual) 0 % (0.0-1.8) 07/10/22 07:28 Metamyelocytes % 0 % 07/10/22 07:28 Myelocytes % 0 % 07/10/22 07:28 Promyelocytes % 0 % 07/10/22 07:28 Blast Cells % 0 % 07/10/22 07:28 Nucleated RBC % Not Reportable 07/10/22 07:28 Seg Neutrophils # Man 3.3 K/mm3 (1.8-7.7) 07/10/22 07:28 Band Neutrophils # 0.0 K/mm3 07/10/22 07:28 Lymphocytes # (Manual) 0.5 K/mm3 (1.2-5.4) L 07/10/22 07:28 Abs React Lymphs (Man) 0.0 K/mm3 07/10/22 07:28 Monocytes # (Manual) 1.0 K/mm3 (0.0-0.8) H 07/10/22 07:28 Eosinophils # (Manual) 0.4 K/mm3 (0.0-0.4) 07/10/22 07:28 Basophils # (Manual) 0.0 K/mm3 (0.0-0.1) 07/10/22 07:28 Metamyelocytes # 0.0 K/mm3 07/10/22 07:28 Myelocytes # 0.0 K/mm3 07/10/22 07:28 Promyelocytes # 0.0 K/mm3 07/10/22 07:28 Blast Cells # 0.0 K/mm3 07/10/22 07:28 WBC Morphology Not Reportable 07/10/22 07:28 Hypersegmented Neuts Not Reportable 07/10/22 07:28 Hyposegmented Neuts Not Reportable 07/10/22 07:28 Hypogranular Neuts Not Reportable 07/10/22 07:28 Smudge Cells Not Reportable 07/10/22 07:28 Toxic Granulation Not Reportable 07/10/22 07:28 Toxic Vacuolation Not Reportable 07/10/22 07:28 Dohle Bodies Not Reportable 07/10/22 07:28 Pelger-Huet Anomaly Not Reportable 07/10/22 07:28 Tamika Rods Not Reportable 07/10/22 07:28 Platelet Estimate Consistent w auto 07/10/22 07:28 Clumped Platelets Not Reportable 07/10/22 07:28 Plt Clumps, EDTA Not Reportable 07/10/22 07:28 Large Platelets Not Reportable 07/10/22 07:28 Giant Platelets Not Reportable 07/10/22 07:28 Platelet Satelliting Not Reportable 07/10/22 07:28 Plt Morphology Comment Not Reportable 07/10/22 07:28 RBC Morphology Not Reportable 07/10/22 07:28 Dimorphic RBCs Not Reportable 07/10/22 07:28 Polychromasia Not Reportable 07/10/22 07:28 Hypochromasia Not Reportable 07/10/22 07:28 Poikilocytosis 1+ 07/10/22 07:28 Anisocytosis 1+ 07/10/22 07:28 Microcytosis Not Reportable 07/10/22 07:28 Macrocytosis Not Reportable 07/10/22 07:28 Spherocytes Not Reportable 07/10/22 07:28 Pappenheimer Bodies Not Reportable 07/10/22 07:28 Sickle Cells Not Reportable 07/10/22 07:28 Target Cells Not Reportable 07/10/22 07:28 Tear Drop Cells Not Reportable 07/10/22 07:28 Ovalocytes Not Reportable 07/10/22 07:28 Helmet Cells Not Reportable 07/10/22 07:28 Gonzalez-[place] Bodies Not Reportable 07/10/22 07:28 [place] Rings Not Reportable 07/10/22 07:28 Beto Cells 1+ 07/10/22 07:28 Bite Cells Not Reportable 07/10/22 07:28 Crenated Cell Not Reportable 07/10/22 07:28 Elliptocytes Not Reportable 07/10/22 07:28 Acanthocytes (Spur) Not Reportable 07/10/22 07:28 Rouleaux Not Reportable 07/10/22 07:28 Hemoglobin C Crystals Not Reportable 07/10/22 07:28 Schistocytes Not Reportable 07/10/22 07:28 Malaria parasites Not Reportable 07/10/22 07:28 Justin Bodies Not Reportable 07/10/22 07:28 Hem Pathologist Commnt No 07/10/22 07:28 Sodium 144 mmol/L (137-145) 07/10/22 07:28 Potassium 4.0 mmol/L (3.6-5.0) 07/10/22 07:28 Chloride 102.4 mmol/L (98-107) 07/10/22 07:28 Carbon Dioxide 29 mmol/L (22-30) 07/10/22 07:28 Anion Gap 17 mmol/L 07/10/22 07:28 BUN 16 mg/dL (7-17) 07/10/22 07:28 Creatinine 0.9 mg/dL (0.6-1.2) 07/10/22 07:28 Estimated GFR > 60 ml/min 07/10/22 07:28 BUN/Creatinine Ratio 18 % 07/10/22 07:28 Glucose 100 mg/dL (65-100) 07/10/22 07:28 POC Glucose 129 mg/dL (70-105) H 07/12/22 06:14 Hemoglobin A1c 5.4 % (4-6) 07/10/22 07:28 Calcium 9.4 mg/dL (8.4-10.2) 07/10/22 07:28 Total Bilirubin 0.80 mg/dL (0.1-1.2) 07/10/22 07:28 AST 12 units/L (5-40) 07/10/22 07:28 ALT < 5 units/L (7-56) L 07/10/22 07:28 Alkaline Phosphatase 76 units/L (35-129) 07/10/22 07:28 Total Protein 6.6 g/dL (6.3-8.2) 07/10/22 07:28 Albumin 3.9 g/dL (3.9-5) 07/10/22 07:28 Albumin/Globulin Ratio 1.4 % 07/10/22 07:28 Triglycerides 59 mg/dL (2-149) 07/10/22 07:28 Cholesterol 167 mg/dL (50-199) 07/10/22 07:28 LDL Cholesterol Direct 86 mg/dL (50-130) 07/10/22 07:28 HDL Cholesterol 72 mg/dL (40-59) H 07/10/22 07:28 Cholesterol/HDL Ratio 2.31 % 07/10/22 07:28 TSH 0.573 mlU/mL (0.270-4.200) 07/10/22 07:28 Last Vital Signs Temp 98.8 F 07/11/22 22:00 Pulse 78 07/11/22 22:00 Resp 18 07/11/22 22:00 BP 150/72 07/11/22 22:00 Pulse Ox 98 07/11/22 22:00
[2022-07-12] MEDS: SULFAMETHOXAZOLE/TRIMETHOPRIM 800/160MG DS TAB PO SCH ×2 (09:28→21:04)
[2022-07-12] MEDS: LISINOPRIL 20 MG TAB PO SCH (09:29)
[2022-07-12] MEDS: FUROSEMIDE 40 MG TAB PO SCH (09:29)
[2022-07-12] MEDS: carvediloL 3.125 MG TAB PO SCH ×2 (10:47→21:04)
--- NOTE | 2022-07-12 11:06 | Progress Note ---
Assessment and Plan Assessment and plan: Patient is a 81-year-old female past medical history of hypertension, noninsulin-dependent type 2 diabetes mellitus, hyperlipidemia, and anxiety who presented for further stabilization after experiencing paranoia and delusions. The patient denied any hallucinations, suicidal ideation, or increased erratic behavior. On evaluation, the patient was found to be alert and oriented and hemodynamically stable. The hospitalist service was consulted for medical management of nonpsychiatric diagnoses. Past History Past Medical History: diabetes ([id number]), hypertension, hyperlipidemia, other (Anxiety) Past Surgical History: No surgical history Social history: lives with family, full code Family history: no significant family history 07/12: Patient seen and examined, no new complaints, Blood sugar stable, continue current management. #Anxiety: Continue supportive care per PSYCH TEAM #Delusion disorder Management per primary team #Acute cystitis without hematuria Continue Bactrim 1 tab twice daily x5 days #Hyperlipidemia #Hypertension - home medications: Lasix 40 mg daily, simvastatin 40 mg daily, Coreg 3.125 mg twice daily, lisinopril 20 mg daily - current medications: Atorvastatin 40 mg daily, Coreg 3.125 mg twice daily, lisinopril 20 mg daily - SBP goal <160 and DBP goal <90 while inpatient - continue to monitor #Non-insulin dependent type II diabetes mellitus - hemoglobin A1c: 5.4 - home regimen: Metformin 500 mg twice daily - current regimen: Discontinuing metformin 500 mg twice daily as the patient's A1c is within normal range - blood glucose goal 140-180 while inpatient - continue to monitor #Advanced care planning -Disease education conducted, care plan discussed, diagnoses discussed, prognosis discussed, and patient acknowledges understanding with care plan -Time: +30 min Thank you for this interesting consult. Please feel free to reach out should any questions arise. We will continue to monitor. History Interval history: Patient seen and examined no new complaints this morning. Tolerating diet Hospitalist Physical - Physical exam Narrative exam: Other diarrhea have improved back from General appearance: Present: no acute distress, well-nourished - EENT Eyes: Present: PERRL, EOM intact ENT: hearing intact, clear oral mucosa, dentition normal - Neck Neck: Present: supple, normal ROM - Respiratory Respiratory effort: normal Respiratory: bilateral: CTA - Cardiovascular Rhythm: regular Heart Sounds: Present: S1 & S2 - Extremities Extremities: no ischemia, pulses intact, pulses symmetrical, No edema, normal temperature, normal color Peripheral Pulses: within normal limits - Abdominal General gastrointestinal: Present: soft, non-tender, non-distended, normal bowel sounds Female genitourinary: Present: deferred - Rectal Rectal Exam: deferred - Integumentary Integumentary: Present: clear, warm, dry - Musculoskeletal Musculoskeletal: strength equal bilaterally - Psychiatric Psychiatric: Normal mood - Neurologic Neurologic: CNII-XII intact, moves all extremities - Allied Health Allied health notes reviewed: nursing - Constitutional Vitals: Temp Pulse Resp BP Pulse Ox 98.0 F 77 16 141/67 99 07/12/22 07:43 07/12/22 10:47 07/12/22 07:43 07/12/22 10:47 07/12/22 07:43 General appearance: Present: no acute distress, well-nourished Results - Labs CBC & Chem 7: 07/10/22 07:28 07/10/22 07:28 Labs: Laboratory Last Values WBC 5.2 K/mm3 (4.5-11.0) 07/10/22 07:28 RBC 3.56 M/mm3 (3.65-5.03) L 07/10/22 07:28 Hgb 10.8 gm/dl (10.1-14.3) 07/10/22 07:28 Hct 33.8 % (30.3-42.9) 07/10/22 07:28 MCV 95 fl (79-97) 07/10/22 07:28 MCH 30 pg (28-32) 07/10/22 07:28 MCHC 32 % (30-34) 07/10/22 07:28 RDW 13.4 % (13.2-15.2) 07/10/22 07:28 Plt Count 247 K/mm3 (140-440) 07/10/22 07:28 [place] % (Auto) Professor Of Art History 07/10/22 07:28 Add Manual Diff Complete 07/10/22 07:28 Total Counted 100 07/10/22 07:28 Seg Neuts % (Manual) 64.0 % (40.0-70.0) 07/10/22 07:28 Band Neutrophils % 0 % 07/10/22 07:28 Lymphocytes % (Manual) 9.0 % (13.4-35.0) L 07/10/22 07:28 Reactive Lymphs % (Man) 0 % 07/10/22 07:28 Monocytes % (Manual) 20.0 % (0.0-7.3) H 07/10/22 07:28 Eosinophils % (Manual) 7.0 % (0.0-4.3) H 07/10/22 07:28 Basophils % (Manual) 0 % (0.0-1.8) 07/10/22 07:28 Metamyelocytes % 0 % 07/10/22 07:28 Myelocytes % 0 % 07/10/22 07:28 Promyelocytes % 0 % 07/10/22 07:28 Blast Cells % 0 % 07/10/22 07:28 Nucleated RBC % Not Reportable 07/10/22 07:28 Seg Neutrophils # Man 3.3 K/mm3 (1.8-7.7) 07/10/22 07:28 Band Neutrophils # 0.0 K/mm3 07/10/22 07:28 Lymphocytes # (Manual) 0.5 K/mm3 (1.2-5.4) L 07/10/22 07:28 Abs React Lymphs (Man) 0.0 K/mm3 07/10/22 07:28 Monocytes # (Manual) 1.0 K/mm3 (0.0-0.8) H 07/10/22 07:28 Eosinophils # (Manual) 0.4 K/mm3 (0.0-0.4) 07/10/22 07:28 Basophils # (Manual) 0.0 K/mm3 (0.0-0.1) 07/10/22 07:28 Metamyelocytes # 0.0 K/mm3 07/10/22 07:28 Myelocytes # 0.0 K/mm3 07/10/22 07:28 Promyelocytes # 0.0 K/mm3 07/10/22 07:28 Blast Cells # 0.0 K/mm3 07/10/22 07:28 WBC Morphology Not Reportable 07/10/22 07:28 Hypersegmented Neuts Not Reportable 07/10/22 07:28 Hyposegmented Neuts Not Reportable 07/10/22 07:28 Hypogranular Neuts Not Reportable 07/10/22 07:28 Smudge Cells Not Reportable 07/10/22 07:28 Toxic Granulation Not Reportable 07/10/22 07:28 Toxic Vacuolation Not Reportable 07/10/22 07:28 Dohle Bodies Not Reportable 07/10/22 07:28 Pelger-Huet Anomaly Not Reportable 07/10/22 07:28 Tamika Rods Not Reportable 07/10/22 07:28 Platelet Estimate Consistent w auto 07/10/22 07:28 Clumped Platelets Not Reportable 07/10/22 07:28 Plt Clumps, EDTA Not Reportable 07/10/22 07:28 Large Platelets Not Reportable 07/10/22 07:28 Giant Platelets Not Reportable 07/10/22 07:28 Platelet Satelliting Not Reportable 07/10/22 07:28 Plt Morphology Comment Not Reportable 07/10/22 07:28 RBC Morphology Not Reportable 07/10/22 07:28 Dimorphic RBCs Not Reportable 07/10/22 07:28 Polychromasia Not Reportable 07/10/22 07:28 Hypochromasia Not Reportable 07/10/22 07:28 Poikilocytosis 1+ 07/10/22 07:28 Anisocytosis 1+ 07/10/22 07:28 Microcytosis Not Reportable 07/10/22 07:28 Macrocytosis Not Reportable 07/10/22 07:28 Spherocytes Not Reportable 07/10/22 07:28 Pappenheimer Bodies Not Reportable 07/10/22 07:28 Sickle Cells Not Reportable 07/10/22 07:28 Target Cells Not Reportable 07/10/22 07:28 Tear Drop Cells Not Reportable 07/10/22 07:28 Ovalocytes Not Reportable 07/10/22 07:28 Helmet Cells Not Reportable 07/10/22 07:28 Gonzalez-Moodus Bodies Not Reportable 07/10/22 07:28 [place] Rings Not Reportable 07/10/22 07:28 [place] Cells 1+ 07/10/22 07:28 Bite Cells Not Reportable 07/10/22 07:28 Crenated Cell Not Reportable 07/10/22 07:28 Elliptocytes Not Reportable 07/10/22 07:28 Acanthocytes (Spur) Not Reportable 07/10/22 07:28 Rouleaux Not Reportable 07/10/22 07:28 Hemoglobin C Crystals Not Reportable 07/10/22 07:28 Schistocytes Not Reportable 07/10/22 07:28 Malaria parasites Not Reportable 07/10/22 07:28 Justin Bodies Not Reportable 07/10/22 07:28 Hem Pathologist Commnt No 07/10/22 07:28 Sodium 144 mmol/L (137-145) 07/10/22 07:28 Potassium 4.0 mmol/L (3.6-5.0) 07/10/22 07:28 Chloride 102.4 mmol/L (98-107) 07/10/22 07:28 Carbon Dioxide 29 mmol/L (22-30) 07/10/22 07:28 Anion Gap 17 mmol/L 07/10/22 07:28 BUN 16 mg/dL (7-17) 07/10/22 07:28 Creatinine 0.9 mg/dL (0.6-1.2) 07/10/22 07:28 Estimated GFR > 60 ml/min 07/10/22 07:28 BUN/Creatinine Ratio 18 % 07/10/22 07:28 Glucose 100 mg/dL (65-100) 07/10/22 07:28 POC Glucose 129 mg/dL (70-105) H 07/12/22 06:14 Hemoglobin A1c 5.4 % (4-6) 07/10/22 07:28 Calcium 9.4 mg/dL (8.4-10.2) 07/10/22 07:28 Total Bilirubin 0.80 mg/dL (0.1-1.2) 07/10/22 07:28 AST 12 units/L (5-40) 07/10/22 07:28 ALT < 5 units/L (7-56) L 07/10/22 07:28 Alkaline Phosphatase 76 units/L (35-129) 07/10/22 07:28 Total Protein 6.6 g/dL (6.3-8.2) 07/10/22 07:28 Albumin 3.9 g/dL (3.9-5) 07/10/22 07:28 Albumin/Globulin Ratio 1.4 % 07/10/22 07:28 Triglycerides 59 mg/dL (2-149) 07/10/22 07:28 Cholesterol 167 mg/dL (50-199) 07/10/22 07:28 LDL Cholesterol Direct 86 mg/dL (50-130) 07/10/22 07:28 HDL Cholesterol 72 mg/dL (40-59) H 07/10/22 07:28 Cholesterol/HDL Ratio 2.31 % 07/10/22 07:28 TSH 0.573 mlU/mL (0.270-4.200) 07/10/22 07:28 [place]arg[place]se/IV: Voiding Method Toilet Active Medications - Current Medications Current Medications: Generic Name Dose Route Start Last Admin Trade Name Freq PRN Reason Stop Dose Admin Carvedilol 3.125 mg 07/11/22 10:00 07/12/22 10:47 Carvedilol 3.125 Mg Tab PO 3.125 mg BID ALVINO Administration Furosemide 40 mg 07/12/22 10:00 07/12/22 09:29 Furosemide 40 Mg Tab PO 40 mg QDAY ALVINO Administration Hydroxyzine Pamoate 25 mg 07/10/22 10:59 Hydroxyzine Pamoate 25 Mg Cap PO Q6H PRN Anxiety Lisinopril 20 mg 07/11/22 10:00 07/12/22 09:29 Lisinopril 20 Mg Tab PO 20 mg DAILY ALVINO Administration Metformin HCl 500 mg 07/11/22 08:00 07/12/22 08:55 Metformin 500 Mg Tab PO 500 mg BIDDIAB ALVINO Administration Risperidone 0.5 mg 07/10/22 22:00 07/11/22 21:18 Risperidone 0.25 Mg Tab PO 0.5 mg HS ALVINO Administration Trazodone HCl 50 mg 07/10/22 22:00 Trazodone 50 Mg Tab PO QHS PRN Insomnia Trimethoprim/Sulfamethoxazole 1 each 07/10/22 22:00 07/12/22 09:28 Sulfamethoxazole/Trimethoprim 800/160mg Ds Tab PO 07/15/22 10:01 1 each BID ALVINO Administration Protocol
[2022-07-12] MEDS: risperiDONE 0.25 MG TAB PO SCH (21:05)
[2022-07-13] MEDS: FUROSEMIDE 40 MG TAB PO SCH (09:33)
[2022-07-13] MEDS: metFORMIN 500 MG TAB PO SCH ×2 (09:33→16:47)
[2022-07-13] MEDS: SULFAMETHOXAZOLE/TRIMETHOPRIM 800/160MG DS TAB PO SCH ×2 (09:33→21:20)
[2022-07-13] MEDS: LISINOPRIL 20 MG TAB PO SCH (09:34)
[2022-07-13] MEDS: carvediloL 3.125 MG TAB PO SCH ×2 (09:35→21:19)
--- NOTE | 2022-07-13 11:47 | Progress Note ---
Subjective Date of service: 07/13/22 Principal diagnosis: Dementia with Behavioral Disturbance Subjective Comment: The patient was seen today. She says she feels fine. The patient says she was admitted into the hospital because she was feeling paranoid. She says she has some break-ins in the past and can't seem to shake the fear. She says she feels scared and paranoid a lot. The patient also says she was diagnosed with Dementia in the past. It is documented the patient thought the son and daughter were trying to harm her. REVIEW OF SYSTEMS Constitutional: Negative for weight loss ENT: Negative for stridor Respiratory: Negative for cough or hemoptysis All other systems reviewed and are negative MENTAL STATUS EXAMINATION General Appearance and Behavior: Age appropriate, wearing appropriate clothes, cooperative, polite with questioning, good eye contact Cooperation: cooperative Psychomotor Behavior: Psychomotor normal Mood: Calm Affect and affective range: congruent with stated affect Thought Process: Goal directed Thought Content: Reality oriented Speech: Normal volume, Regular rate and rhythm Suicidal Ideation: Denies Homicidal Ideation: Denies Hallucination: Denies Delusions: Denies Impulse Control: Limited Insight and Judgment: Limited Memory: Intact Attention:attentive Orientation: Alert and oriented Diagnoses: Dementia with Behavioral Disturbance Treatment Plan Patient admitted for inpatient psychiatric evaluation, medication adjustment and close monitoring The patient's behavior, mood, sleep and appetite will be closely monitored. Patient enrolled in individual and group therapeutic sessions and encouraged to attend. Patient provided with a safe and structured environment. Patient's physical health needs will be addressed by the Hospitalist. Hospita list Consulted Labs including CBC, CMP, Lipid profile and Hemoglobin A1C levels ordered for baseline reference Social Assessment will be completed and the Secretary will work with patient and family to ensure a suitable and safe disposition Medication adjustment will be made as clinically indicated Increase Risperidone 0.5mg po BID Usual Wellness [employer]/Preservation: - Start Trazodone 50 mg po QHS & 50 mg po QHS PRN between 10 PM & 2 AM for insomnia - Start Melatonin 5 mg po QHS to promote circadian rhythm The patient agreed on the treatment plan, understood the risk, benefit, alternative treatment, potential consequence of no treatment, and gave informed consent. Estimated days: 7 Post hospital care: primary care provider, psychiatric provider Case staffed with Dr. Negro Medications and Allergies Allergies Allergy/AdvReac Type Severity Reaction Status Date / Time No Known Allergies Allergy Verified 07/09/22 20:32 Home Medications Medication Instructions Recorded Confirmed Last Taken Type Furosemide [Lasix] 40 mg PO DAILY 07/10/22 07/10/22 Unknown History Potassium Chloride [Klor-Con M20] 20 meq PO DAILY 07/10/22 07/10/22 Unknown History Simvastatin 40 mg PO HS 07/10/22 07/10/22 Unknown History Sulfamethoxazole/Trimethoprim 1 each PO BID MDD 14 tabs X 7 Days 07/10/22 07/10/22 Unknown History [Bactrim DS TAB] carvediloL [Coreg] 3.125 mg PO BID 07/10/22 07/10/22 Unknown History lisinopriL [Lisinopril] 20 mg PO DAILY 07/10/22 07/10/22 Unknown History metFORMIN [Glucophage] 500 mg PO BID 07/10/22 07/10/22 Unknown History risperiDONE [RisperDAL] 0.5 mg PO HS 07/10/22 07/10/22 Unknown History risperiDONE [RisperDAL] 0.5 mg PO QHS 07/10/22 07/10/22 Unknown History Active Meds: Active Medications Carvedilol (Carvedilol 3.125 Mg Tab) 3.125 mg PO BID [facility] Last Admin: 07/13/22 09:35 Dose: 3.125 mg Furosemide (Furosemide 40 Mg Tab) 40 mg PO QDAY [facility] Last Admin: 07/13/22 09:33 Dose: 40 mg Hydroxyzine Pamoate (Hydroxyzine Pamoate 25 Mg Cap) 25 mg PO Q6H PRN PRN Reason: Anxiety Lisinopril (Lisinopril 20 Mg Tab) 20 mg PO DAILY [facility] Last Admin: 07/13/22 09:34 Dose: 20 mg Metformin HCl (Metformin 500 Mg Tab) 500 mg PO BIDDIAB [facility] Last Admin: 07/13/22 09:33 Dose: 500 mg Risperidone (Risperidone 0.25 Mg Tab) 0.5 mg PO [facility] Last Admin: 07/12/22 21:05 Dose: 0.5 mg Trazodone HCl (Trazodone 50 Mg Tab) 50 mg PO QHS PRN PRN Reason: Insomnia Last Admin: 07/12/22 21:05 Dose: 50 mg Trimethoprim/Sulfamethoxazole (Sulfamethoxazole/Trimethoprim 800/160mg Ds Tab) 1 each PO BID [facility]; Protocol Stop: 07/15/22 10:01 Last Admin: 07/13/22 09:33 Dose: 1 each Results - Results Labs/Vitals: Laboratory Last Values WBC 5.2 K/mm3 (4.5-11.0) 07/10/22 07:28 RBC 3.56 M/mm3 (3.65-5.03) L 07/10/22 07:28 Hgb 10.8 gm/dl (10.1-14.3) 07/10/22 07:28 Hct 33.8 % (30.3-42.9) 07/10/22 07:28 MCV 95 fl (79-97) 07/10/22 07:28 MCH 30 pg (28-32) 07/10/22 07:28 MCHC 32 % (30-34) 07/10/22 07:28 RDW 13.4 % (13.2-15.2) 07/10/22 07:28 Plt Count 247 K/mm3 (140-440) 07/10/22 07:28 Lynn % (Auto) Laser Systems Engineer 07/10/22 07:28 Add Manual Diff Complete 07/10/22 07:28 Total Counted 100 07/10/22 07:28 Seg Neuts % (Manual) 64.0 % (40.0-70.0) 07/10/22 07:28 Band Neutrophils % 0 % 07/10/22 07:28 Lymphocytes % (Manual) 9.0 % (13.4-35.0) L 07/10/22 07:28 Reactive Lymphs % (Man) 0 % 07/10/22 07:28 Monocytes % (Manual) 20.0 % (0.0-7.3) H 07/10/22 07:28 Eosinophils % (Manual) 7.0 % (0.0-4.3) H 07/10/22 07:28 Basophils % (Manual) 0 % (0.0-1.8) 07/10/22 07:28 Metamyelocytes % 0 % 07/10/22 07:28 Myelocytes % 0 % 07/10/22 07:28 Promyelocytes % 0 % 07/10/22 07:28 Blast Cells % 0 % 07/10/22 07:28 Nucleated RBC % Not Reportable 07/10/22 07:28 Seg Neutrophils # Man 3.3 K/mm3 (1.8-7.7) 07/10/22 07:28 Band Neutrophils # 0.0 K/mm3 07/10/22 07:28 Lymphocytes # (Manual) 0.5 K/mm3 (1.2-5.4) L 07/10/22 07:28 Abs React Lymphs (Man) 0.0 K/mm3 07/10/22 07:28 Monocytes # (Manual) 1.0 K/mm3 (0.0-0.8) H 07/10/22 07:28 Eosinophils # (Manual) 0.4 K/mm3 (0.0-0.4) 07/10/22 07:28 Basophils # (Manual) 0.0 K/mm3 (0.0-0.1) 07/10/22 07:28 Metamyelocytes # 0.0 K/mm3 07/10/22 07:28 Myelocytes # 0.0 K/mm3 07/10/22 07:28 Promyelocytes # 0.0 K/mm3 07/10/22 07:28 Blast Cells # 0.0 K/mm3 07/10/22 07:28 WBC Morphology Not Reportable 07/10/22 07:28 Hypersegmented Neuts Not Reportable 07/10/22 07:28 Hyposegmented Neuts Not Reportable 07/10/22 07:28 Hypogranular Neuts Not Reportable 07/10/22 07:28 Smudge Cells Not Reportable 07/10/22 07:28 Toxic Granulation Not Reportable 07/10/22 07:28 Toxic Vacuolation Not Reportable 07/10/22 07:28 Dohle Bodies Not Reportable 07/10/22 07:28 Pelger-Huet Anomaly Not Reportable 07/10/22 07:28 Tamika Rods Not Reportable 07/10/22 07:28 Platelet Estimate Consistent w auto 07/10/22 07:28 Clumped Platelets Not Reportable 07/10/22 07:28 Plt Clumps, EDTA Not Reportable 07/10/22 07:28 Large Platelets Not Reportable 07/10/22 07:28 Giant Platelets Not Reportable 07/10/22 07:28 Platelet Satelliting Not Reportable 07/10/22 07:28 Plt Morphology Comment Not Reportable 07/10/22 07:28 RBC Morphology Not Reportable 07/10/22 07:28 Dimorphic RBCs Not Reportable 07/10/22 07:28 Polychromasia Not Reportable 07/10/22 07:28 Hypochromasia Not Reportable 07/10/22 07:28 Poikilocytosis 1+ 07/10/22 07:28 Anisocytosis 1+ 07/10/22 07:28 Microcytosis Not Reportable 07/10/22 07:28 Macrocytosis Not Reportable 07/10/22 07:28 Spherocytes Not Reportable 07/10/22 07:28 Pappenheimer Bodies Not Reportable 07/10/22 07:28 Sickle Cells Not Reportable 07/10/22 07:28 Target Cells Not Reportable 07/10/22 07:28 Tear Drop Cells Not Reportable 07/10/22 07:28 Ovalocytes Not Reportable 07/10/22 07:28 Helmet Cells Not Reportable 07/10/22 07:28 Gonzalez-Hollenberg Bodies Not Reportable 07/10/22 07:28 [place] Rings Not Reportable 07/10/22 07:28 [place] Cells 1+ 07/10/22 07:28 Bite Cells Not Reportable 07/10/22 07:28 Crenated Cell Not Reportable 07/10/22 07:28 Elliptocytes Not Reportable 07/10/22 07:28 Acanthocytes (Spur) Not Reportable 07/10/22 07:28 Rouleaux Not Reportable 07/10/22 07:28 Hemoglobin C Crystals Not Reportable 07/10/22 07:28 Schistocytes Not Reportable 07/10/22 07:28 Malaria parasites Not Reportable 07/10/22 07:28 Justin Bodies Not Reportable 07/10/22 07:28 Hem Pathologist Commnt No 07/10/22 07:28 Sodium 144 mmol/L (137-145) 07/10/22 07:28 Potassium 4.0 mmol/L (3.6-5.0) 07/10/22 07:28 Chloride 102.4 mmol/L (98-107) 07/10/22 07:28 Carbon Dioxide 29 mmol/L (22-30) 07/10/22 07:28 Anion Gap 17 mmol/L 07/10/22 07:28 BUN 16 mg/dL (7-17) 07/10/22 07:28 Creatinine 0.9 mg/dL (0.6-1.2) 07/10/22 07:28 Estimated GFR > 60 ml/min 07/10/22 07:28 BUN/Creatinine Ratio 18 % 07/10/22 07:28 Glucose 100 mg/dL (65-100) 07/10/22 07:28 POC Glucose 129 mg/dL (70-105) H 07/13/22 06:29 Hemoglobin A1c 5.4 % (4-6) 07/10/22 07:28 Calcium 9.4 mg/dL (8.4-10.2) 07/10/22 07:28 Total Bilirubin 0.80 mg/dL (0.1-1.2) 07/10/22 07:28 AST 12 units/L (5-40) 07/10/22 07:28 ALT < 5 units/L (7-56) L 07/10/22 07:28 Alkaline Phosphatase 76 units/L (35-129) 07/10/22 07:28 Total Protein 6.6 g/dL (6.3-8.2) 07/10/22 07:28 Albumin 3.9 g/dL (3.9-5) 07/10/22 07:28 Albumin/Globulin Ratio 1.4 % 07/10/22 07:28 Triglycerides 59 mg/dL (2-149) 07/10/22 07:28 Cholesterol 167 mg/dL (50-199) 07/10/22 07:28 LDL Cholesterol Direct 86 mg/dL (50-130) 07/10/22 07:28 HDL Cholesterol 72 mg/dL (40-59) H 07/10/22 07:28 Cholesterol/HDL Ratio 2.31 % 07/10/22 07:28 TSH 0.573 mlU/mL (0.270-4.200) 07/10/22 07:28 Last Vital Signs Temp 98.5 F 07/13/22 06:09 Pulse 77 07/13/22 09:34 Resp 17 07/13/22 06:09 BP 131/65 07/13/22 09:34 Pulse Ox 94 07/13/22 06:09
--- NOTE | 2022-07-13 16:05 | Progress Note ---
Assessment and Plan Assessment and plan: Patient is a 81-year-old female past medical history of hypertension, noninsulin-dependent type 2 diabetes mellitus, hyperlipidemia, and anxiety who presented for further stabilization after experiencing paranoia and delusions. The patient denied any hallucinations, suicidal ideation, or increased erratic behavior. On evaluation, the patient was found to be alert and oriented and hemodynamically stable. The hospitalist service was consulted for medical management of nonpsychiatric diagnoses. #Anxiety #Delusion disorder Management per primary team #Acute cystitis without hematuria Continue Bactrim 1 tab twice daily x5 days #Hyperlipidemia #Hypertension - home medications: Lasix 40 mg daily, simvastatin 40 mg daily, Coreg 3.125 mg twice daily, lisinopril 20 mg daily - current medications: Atorvastatin 40 mg daily, Coreg 3.125 mg twice daily, lisinopril 20 mg daily, Lasix 40 mg daily - SBP goal <160 and DBP goal <90 while inpatient - continue to monitor #Non-insulin dependent type II diabetes mellitus - hemoglobin A1c: 5.4 - home regimen: Metformin 500 mg twice daily - current regimen: Discontinuing metformin 500 mg twice daily as the patient's A1c is within normal range - blood glucose goal 140-180 while inpatient - continue to monitor #Advanced care planning -Disease education conducted, care plan discussed, diagnoses discussed, prognosis discussed, and patient acknowledges understanding with care plan -Time: +30 min Thank you for this interesting consult. Please feel free to reach out should any questions arise. We will continue to monitor. Disposition Plan: Continue medical management Total Time Spent with Patient (Minutes): 45 minutes History Interval history: No acute events overnight. Hospitalist Physical - Constitutional Vitals: Temp Pulse Resp BP Pulse Ox 98.5 F 77 17 131/65 94 07/13/22 06:09 07/13/22 09:34 07/13/22 06:09 07/13/22 09:34 07/13/22 06:09 General appearance: Present: no acute distress, well-nourished - EENT Eyes: Present: PERRL, EOM intact ENT: hearing intact, clear oral mucosa - Neck Neck: Present: supple, normal ROM - Respiratory Respiratory effort: normal Respiratory: bilateral: CTA - Cardiovascular Rhythm: regular Heart Sounds: Present: S1 & S2 - Extremities Extremities: no ischemia, pulses intact, pulses symmetrical, No edema, normal temperature, normal color Peripheral Pulses: within normal limits - Abdominal General gastrointestinal: soft, non-tender, non-distended, normal bowel sounds - Integumentary Integumentary: Present: clear, warm, dry - Psychiatric Psychiatric: appropriate mood/affect, cooperative - Neurologic Neurologic: CNII-XII intact, moves all extremities - Allied Health Allied health notes reviewed: nursing Results - Labs CBC & Chem 7: 07/10/22 07:28 07/10/22 07:28 Labs: Laboratory Last Values WBC 5.2 K/mm3 (4.5-11.0) 07/10/22 07:28 RBC 3.56 M/mm3 (3.65-5.03) L 07/10/22 07:28 Hgb 10.8 gm/dl (10.1-14.3) 07/10/22 07:28 Hct 33.8 % (30.3-42.9) 07/10/22 07:28 MCV 95 fl (79-97) 07/10/22 07:28 MCH 30 pg (28-32) 07/10/22 07:28 MCHC 32 % (30-34) 07/10/22 07:28 RDW 13.4 % (13.2-15.2) 07/10/22 07:28 Plt Count 247 K/mm3 (140-440) 07/10/22 07:28 [place] % (Auto) Raw Stock Drier Tender 07/10/22 07:28 Add Manual Diff Complete 07/10/22 07:28 Total Counted 100 07/10/22 07:28 Seg Neuts % (Manual) 64.0 % (40.0-70.0) 07/10/22 07:28 Band Neutrophils % 0 % 07/10/22 07:28 Lymphocytes % (Manual) 9.0 % (13.4-35.0) L 07/10/22 07:28 Reactive Lymphs % (Man) 0 % 07/10/22 07:28 Monocytes % (Manual) 20.0 % (0.0-7.3) H 07/10/22 07:28 Eosinophils % (Manual) 7.0 % (0.0-4.3) H 07/10/22 07:28 Basophils % (Manual) 0 % (0.0-1.8) 07/10/22 07:28 Metamyelocytes % 0 % 07/10/22 07:28 Myelocytes % 0 % 07/10/22 07:28 Promyelocytes % 0 % 07/10/22 07:28 Blast Cells % 0 % 07/10/22 07:28 Nucleated RBC % Not Reportable 07/10/22 07:28 Seg Neutrophils # Man 3.3 K/mm3 (1.8-7.7) 07/10/22 07:28 Band Neutrophils # 0.0 K/mm3 07/10/22 07:28 Lymphocytes # (Manual) 0.5 K/mm3 (1.2-5.4) L 07/10/22 07:28 Abs React Lymphs (Man) 0.0 K/mm3 07/10/22 07:28 Monocytes # (Manual) 1.0 K/mm3 (0.0-0.8) H 07/10/22 07:28 Eosinophils # (Manual) 0.4 K/mm3 (0.0-0.4) 07/10/22 07:28 Basophils # (Manual) 0.0 K/mm3 (0.0-0.1) 07/10/22 07:28 Metamyelocytes # 0.0 K/mm3 07/10/22 07:28 Myelocytes # 0.0 K/mm3 07/10/22 07:28 Promyelocytes # 0.0 K/mm3 07/10/22 07:28 Blast Cells # 0.0 K/mm3 07/10/22 07:28 WBC Morphology Not Reportable 07/10/22 07:28 Hypersegmented Neuts Not Reportable 07/10/22 07:28 Hyposegmented Neuts Not Reportable 07/10/22 07:28 Hypogranular Neuts Not Reportable 07/10/22 07:28 Smudge Cells Not Reportable 07/10/22 07:28 Toxic Granulation Not Reportable 07/10/22 07:28 Toxic Vacuolation Not Reportable 07/10/22 07:28 Dohle Bodies Not Reportable 07/10/22 07:28 Pelger-Huet Anomaly Not Reportable 07/10/22 07:28 Tamika Rods Not Reportable 07/10/22 07:28 Platelet Estimate Consistent w auto 07/10/22 07:28 Clumped Platelets Not Reportable 07/10/22 07:28 Plt Clumps, EDTA Not Reportable 07/10/22 07:28 Large Platelets Not Reportable 07/10/22 07:28 Giant Platelets Not Reportable 07/10/22 07:28 Platelet Satelliting Not Reportable 07/10/22 07:28 Plt Morphology Comment Not Reportable 07/10/22 07:28 RBC Morphology Not Reportable 07/10/22 07:28 Dimorphic RBCs Not Reportable 07/10/22 07:28 Polychromasia Not Reportable 07/10/22 07:28 Hypochromasia Not Reportable 07/10/22 07:28 Poikilocytosis 1+ 07/10/22 07:28 Anisocytosis 1+ 07/10/22 07:28 Microcytosis Not Reportable 07/10/22 07:28 Macrocytosis Not Reportable 07/10/22 07:28 Spherocytes Not Reportable 07/10/22 07:28 Pappenheimer Bodies Not Reportable 07/10/22 07:28 Sickle Cells Not Reportable 07/10/22 07:28 Target Cells Not Reportable 07/10/22 07:28 Tear Drop Cells Not Reportable 07/10/22 07:28 Ovalocytes Not Reportable 07/10/22 07:28 Helmet Cells Not Reportable 07/10/22 07:28 Gonzalez-[place] Bodies Not Reportable 07/10/22 07:28 [place] Rings Not Reportable 07/10/22 07:28 Beto Cells 1+ 07/10/22 07:28 Bite Cells Not Reportable 07/10/22 07:28 Crenated Cell Not Reportable 07/10/22 07:28 Elliptocytes Not Reportable 07/10/22 07:28 Acanthocytes (Spur) Not Reportable 07/10/22 07:28 Rouleaux Not Reportable 07/10/22 07:28 Hemoglobin C Crystals Not Reportable 07/10/22 07:28 Schistocytes Not Reportable 07/10/22 07:28 Malaria parasites Not Reportable 07/10/22 07:28 Justin Bodies Not Reportable 07/10/22 07:28 Hem Pathologist Commnt No 07/10/22 07:28 Sodium 144 mmol/L (137-145) 07/10/22 07:28 Potassium 4.0 mmol/L (3.6-5.0) 07/10/22 07:28 Chloride 102.4 mmol/L (98-107) 07/10/22 07:28 Carbon Dioxide 29 mmol/L (22-30) 07/10/22 07:28 Anion Gap 17 mmol/L 07/10/22 07:28 BUN 16 mg/dL (7-17) 07/10/22 07:28 Creatinine 0.9 mg/dL (0.6-1.2) 07/10/22 07:28 Estimated GFR > 60 ml/min 07/10/22 07:28 BUN/Creatinine Ratio 18 % 07/10/22 07:28 Glucose 100 mg/dL (65-100) 07/10/22 07:28 POC Glucose 129 mg/dL (70-105) H 07/13/22 06:29 Hemoglobin A1c 5.4 % (4-6) 07/10/22 07:28 Calcium 9.4 mg/dL (8.4-10.2) 07/10/22 07:28 Total Bilirubin 0.80 mg/dL (0.1-1.2) 07/10/22 07:28 AST 12 units/L (5-40) 07/10/22 07:28 ALT < 5 units/L (7-56) L 07/10/22 07:28 Alkaline Phosphatase 76 units/L (35-129) 07/10/22 07:28 Total Protein 6.6 g/dL (6.3-8.2) 07/10/22 07:28 Albumin 3.9 g/dL (3.9-5) 07/10/22 07:28 Albumin/Globulin Ratio 1.4 % 07/10/22 07:28 Triglycerides 59 mg/dL (2-149) 07/10/22 07:28 Cholesterol 167 mg/dL (50-199) 07/10/22 07:28 LDL Cholesterol Direct 86 mg/dL (50-130) 07/10/22 07:28 HDL Cholesterol 72 mg/dL (40-59) H 07/10/22 07:28 Cholesterol/HDL Ratio 2.31 % 07/10/22 07:28 TSH 0.573 mlU/mL (0.270-4.200) 07/10/22 07:28 [place]/IV: Voiding Method Toilet Active Medications - Current Medications Current Medications: Generic Name Dose Route Start Last Admin Trade Name Freq PRN Reason Stop Dose Admin Carvedilol 3.125 mg 07/11/22 10:00 07/13/22 09:35 Carvedilol 3.125 Mg Tab PO 3.125 mg BID ALVNIO Administration Furosemide 40 mg 07/12/22 10:00 07/13/22 09:33 Furosemide 40 Mg Tab PO 40 mg QDAY ALVINO Administration Hydroxyzine Pamoate 25 mg 07/10/22 10:59 Hydroxyzine Pamoate 25 Mg Cap PO Q6H PRN Anxiety Lisinopril 20 mg 07/11/22 10:00 07/13/22 09:34 Lisinopril 20 Mg Tab PO 20 mg DAILY ALVINO Administration Metformin HCl 500 mg 07/11/22 08:00 07/13/22 09:33 Metformin 500 Mg Tab PO 500 mg BIDDIAB ALVINO Administration Risperidone 0.5 mg 07/13/22 22:00 Risperidone 0.25 Mg Tab PO BID ALVINO Trazodone HCl 50 mg 07/10/22 22:00 07/12/22 21:05 Trazodone 50 Mg Tab PO 50 mg QHS PRN Administration Insomnia Trimethoprim/Sulfamethoxazole 1 each 07/10/22 22:00 07/13/22 09:33 Sulfamethoxazole/Trimethoprim 800/160mg Ds Tab PO 07/15/22 10:01 1 each BID ALVINO Administration Protocol
[2022-07-13 21:21] VITALS: BP 116/56
[2022-07-13] MEDS ORDERED: risperiDONE 0.25 MG TAB PO SCH (22:00)
--- NOTE | 2022-07-14 07:22 | Discharge Summary ---
Providers - Providers Date of Admission: 07/09/22 21:35 Date of discharge: 07/14/22 Attending physician: GLYNN BARRIENTOS MD 07/09/22 20:12 Consult to Physician [CONS] Routine Comment: Consulting Provider: TRIPP [place] Physician Instructions: Please manage conditions per H&P. 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 The patient's mood, cognition, behavior, moral support are improved and stabilized. St the time of discharge, the patient had no endangering behavior and no debilitating adverse effects. The patient agreed on potential consequences of no treatment and gave informed consent. Disposition: 01 HOME / SELF CARE / HOMELESS Time spent for discharge: 35 Allergies/Adverse Reactions: Allergies No Known Allergies Allergy (Verified 07/09/22 20:32) Vital Signs: Last Vital Signs Temp 98.3 F 07/14/22 04:22 Pulse 75 07/14/22 04:22 Resp 16 07/14/22 04:22 BP 116/56 07/14/22 04:22 Pulse Ox 97 07/14/22 04:22 Last Lab: Laboratory Last Values WBC 5.2 K/mm3 (4.5-11.0) 07/10/22 07:28 RBC 3.56 M/mm3 (3.65-5.03) L 07/10/22 07:28 Hgb 10.8 gm/dl (10.1-14.3) 07/10/22 07:28 Hct 33.8 % (30.3-42.9) 07/10/22 07:28 MCV 95 fl (79-97) 07/10/22 07:28 MCH 30 pg (28-32) 07/10/22 07:28 MCHC 32 % (30-34) 07/10/22 07:28 RDW 13.4 % (13.2-15.2) 07/10/22 07:28 Plt Count 247 K/mm3 (140-440) 07/10/22 07:28 [place] % (Auto) Development Technical Lead 07/10/22 07:28 Add Manual Diff Complete 07/10/22 07:28 Total Counted 100 07/10/22 07:28 Seg Neuts % (Manual) 64.0 % (40.0-70.0) 07/10/22 07:28 Band Neutrophils % 0 % 07/10/22 07:28 Lymphocytes % (Manual) 9.0 % (13.4-35.0) L 07/10/22 07:28 Reactive Lymphs % (Man) 0 % 07/10/22 07:28 Monocytes % (Manual) 20.0 % (0.0-7.3) H 07/10/22 07:28 Eosinophils % (Manual) 7.0 % (0.0-4.3) H 07/10/22 07:28 Basophils % (Manual) 0 % (0.0-1.8) 07/10/22 07:28 Metamyelocytes % 0 % 07/10/22 07:28 Myelocytes % 0 % 07/10/22 07:28 Promyelocytes % 0 % 07/10/22 07:28 Blast Cells % 0 % 07/10/22 07:28 Nucleated RBC % Not Reportable 07/10/22 07:28 Seg Neutrophils # Man 3.3 K/mm3 (1.8-7.7) 07/10/22 07:28 Band Neutrophils # 0.0 K/mm3 07/10/22 07:28 Lymphocytes # (Manual) 0.5 K/mm3 (1.2-5.4) L 07/10/22 07:28 Abs React Lymphs (Man) 0.0 K/mm3 07/10/22 07:28 Monocytes # (Manual) 1.0 K/mm3 (0.0-0.8) H 07/10/22 07:28 Eosinophils # (Manual) 0.4 K/mm3 (0.0-0.4) 07/10/22 07:28 Basophils # (Manual) 0.0 K/mm3 (0.0-0.1) 07/10/22 07:28 Metamyelocytes # 0.0 K/mm3 07/10/22 07:28 Myelocytes # 0.0 K/mm3 07/10/22 07:28 Promyelocytes # 0.0 K/mm3 07/10/22 07:28 Blast Cells # 0.0 K/mm3 07/10/22 07:28 WBC Morphology Not Reportable 07/10/22 07:28 Hypersegmented Neuts Not Reportable 07/10/22 07:28 Hyposegmented Neuts Not Reportable 07/10/22 07:28 Hypogranular Neuts Not Reportable 07/10/22 07:28 Smudge Cells Not Reportable 07/10/22 07:28 Toxic Granulation Not Reportable 07/10/22 07:28 Toxic Vacuolation Not Reportable 07/10/22 07:28 Dohle Bodies Not Reportable 07/10/22 07:28 Pelger-Huet Anomaly Not Reportable 07/10/22 07:28 Tamika Rods Not Reportable 07/10/22 07:28 Platelet Estimate Consistent w auto 07/10/22 07:28 Clumped Platelets Not Reportable 07/10/22 07:28 Plt Clumps, EDTA Not Reportable 07/10/22 07:28 Large Platelets Not Reportable 07/10/22 07:28 Giant Platelets Not Reportable 07/10/22 07:28 Platelet Satelliting Not Reportable 07/10/22 07:28 Plt Morphology Comment Not Reportable 07/10/22 07:28 RBC Morphology Not Reportable 07/10/22 07:28 Dimorphic RBCs Not Reportable 07/10/22 07:28 Polychromasia Not Reportable 07/10/22 07:28 Hypochromasia Not Reportable 07/10/22 07:28 Poikilocytosis 1+ 07/10/22 07:28 Anisocytosis 1+ 07/10/22 07:28 Microcytosis Not Reportable 07/10/22 07:28 Macrocytosis Not Reportable 07/10/22 07:28 Spherocytes Not Reportable 07/10/22 07:28 Pappenheimer Bodies Not Reportable 07/10/22 07:28 Sickle Cells Not Reportable 07/10/22 07:28 Target Cells Not Reportable 07/10/22 07:28 Tear Drop Cells Not Reportable 07/10/22 07:28 Ovalocytes Not Reportable 07/10/22 07:28 Helmet Cells Not Reportable 07/10/22 07:28 Gonzalez-[place] Bodies Not Reportable 07/10/22 07:28 [place] Rings Not Reportable 07/10/22 07:28 [place] Cells 1+ 07/10/22 07:28 Bite Cells Not Reportable 07/10/22 07:28 Crenated Cell Not Reportable 07/10/22 07:28 Elliptocytes Not Reportable 07/10/22 07:28 Acanthocytes (Spur) Not Reportable 07/10/22 07:28 Rouleaux Not Reportable 07/10/22 07:28 Hemoglobin C Crystals Not Reportable 07/10/22 07:28 Schistocytes Not Reportable 07/10/22 07:28 Malaria parasites Not Reportable 07/10/22 07:28 Justin Bodies Not Reportable 07/10/22 07:28 Hem Pathologist Commnt No 07/10/22 07:28 Sodium 144 mmol/L (137-145) 07/10/22 07:28 Potassium 4.0 mmol/L (3.6-5.0) 07/10/22 07:28 Chloride 102.4 mmol/L (98-107) 07/10/22 07:28 Carbon Dioxide 29 mmol/L (22-30) 07/10/22 07:28 Anion Gap 17 mmol/L 07/10/22 07:28 BUN 16 mg/dL (7-17) 07/10/22 07:28 Creatinine 0.9 mg/dL (0.6-1.2) 07/10/22 07:28 Estimated GFR > 60 ml/min 07/10/22 07:28 BUN/Creatinine Ratio 18 % 07/10/22 07:28 Glucose 100 mg/dL (65-100) 07/10/22 07:28 POC Glucose 129 mg/dL (70-105) H 07/13/22 06:29 Hemoglobin A1c 5.4 % (4-6) 07/10/22 07:28 Calcium 9.4 mg/dL (8.4-10.2) 07/10/22 07:28 Total Bilirubin 0.80 mg/dL (0.1-1.2) 07/10/22 07:28 AST 12 units/L (5-40) 07/10/22 07:28 ALT < 5 units/L (7-56) L 07/10/22 07:28 Alkaline Phosphatase 76 units/L (35-129) 07/10/22 07:28 Total Protein 6.6 g/dL (6.3-8.2) 07/10/22 07:28 Albumin 3.9 g/dL (3.9-5) 07/10/22 07:28 Albumin/Globulin Ratio 1.4 % 07/10/22 07:28 Triglycerides 59 mg/dL (2-149) 07/10/22 07:28 Cholesterol 167 mg/dL (50-199) 07/10/22 07:28 LDL Cholesterol Direct 86 mg/dL (50-130) 07/10/22 07:28 HDL Cholesterol 72 mg/dL (40-59) H 07/10/22 07:28 Cholesterol/HDL Ratio 2.31 % 07/10/22 07:28 TSH 0.573 mlU/mL (0.270-4.200) 07/10/22 07:28 Core Measure Documentation - Palliative Care Palliative Care/ Comfort Measures: Not Applicable - Core Measures Any of the following diagnoses?: none Exam - Constitutional Vitals: Temp Pulse Resp BP Pulse Ox 98.3 F 75 16 116/56 97 07/14/22 04:22 07/14/22 04:22 07/14/22 04:22 07/14/22 04:22 07/14/22 04:22 General appearance: Present: no acute distress - EENT Eyes: Present: PERRL, EOM intact ENT: hearing intact, clear oral mucosa - Neck Neck: Present: supple, normal ROM - Respiratory Respiratory effort: normal Plan Activity: advance as tolerated Weight Bearing Status: Weight Bear as Tolerated Care Plan Goals: Maintain good and stable mental health Plan of Treatment: The patient should be compliant with medications, not to use drugs, and not to drink alcohol. The patient understands that if suicidal ideas, homicidal ideas or any endangering feeling arise, the patient should seek assistance including, but not limited to crisis hotline, and emergency room. Assessment: Delirium Disorder Follow up with: PRIMARY CARE, [Primary Care Provider] - 7 Days Prescriptions: traZODone [Desyrel] 50 mg PO QHS PRN #30 tablet PRN Reason: Insomnia risperiDONE [RisperDAL] 0.5 mg PO BID #120 tablet hydrOXYzine PAMOATE [Vistaril] 25 mg PO Q6H PRN #120 capsule PRN Reason: Anxiety
== END 2022-07-14 08:30 | disposition home or self-care (01) | DRG 884 ==
LOC: 3A 10:41 → UNDOADMIN 10:41 → 5A 21:35
PROVIDERS: ADMIT Psychiatry & Neurology Psychiatry; ATTEND Psychiatry & Neurology Psychiatry
DX: F03.91 Unspecified dementia, unspecified severity, with behavioral disturbance (principal); N30.00 Acute cystitis without hematuria; F22 Delusional disorders; E78.5 Hyperlipidemia, unspecified; I11.0 Hypertensive heart disease with heart failure; I50.9 Heart failure, unspecified; F39 Unspecified mood [affective] disorder; E11.9 Type 2 diabetes mellitus without complications; F41.9 Anxiety disorder, unspecified; Z79.899 Other long term (current) drug therapy; Z79.84 Long term (current) use of oral hypoglycemic drugs
CPT/HCPCS: 36415; 80053; 80061; 82962; 83036; 84443; 85007; 85025; G0378